=== PATIENT | female | born 1980 | race Caucasian/White ===

== ENCOUNTER 2018-05-25 09:59 | Emergency (ER) | payer SELFPAY ==
[~2018-05-25] VITALS: Ht 154.9 cm; Wt 99.8 kg
[2018-05-25] MEDS ORDERED: RT-ALBUTEROL/IPRATROPIUM 3 ML (DUONEB) VIAL INH ONE (10:30)
--- NOTE | 2018-05-25 10:38 | ED Cough/URI ---
General Chief Complaint: Cough/Cold/Flu Symptoms Stated Complaint: COUGH/VOMITING/VOICE IS HOARSE Nursing Triage Note: Pt ambulated to rm 10 w/o difficulty. Pt reports cough, congestion, chest pain with cough that has persisited for a few days. Pt reports symptoms worsening yesterday. Pt reports vomiting three times yesterday. Pt reports hoarse voice. Source: patient Exam Limitations: no limitations History of Present Illness Date Seen by Provider: May 25, 2018 Time Seen by Provider: 10:34 Initial Comments To ER with productive cough, rhinorrhea/nasal congestion, wheezing and intermittent vomiting since yesterday. She also has hoarseness of her voice. Timing/Duration: constant, yesterday Severity/Quality: productive cough, sputum Associated Symptoms: cough, shortness of breath, wheezing Allergies and Home Medications Allergies Coded Allergies: No Known Drug Allergies (Unverified , 05/25/18) Patient Home Medication List Home Medication List Reviewed: Yes Review of Systems Review of Systems Constitutional: see HPI, chills, fever EENTM: see HPI Respiratory: see HPI, cough, wheezing Cardiovascular: no symptoms reported Gastrointestinal: No abdominal pain, No diarrhea; nausea, vomiting Genitourinary: no symptoms reported Musculoskeletal: no symptoms reported Skin: no symptoms reported Psychiatric/Neurological: No Symptoms Reported Hematologic/Lymphatic: No Symptoms Reported Immunological/Allergic: no symptoms reported Past Oerttwg-Glyyav-Cttymg Hx Patient Social History Alcohol Use: Occasionally Uses Recreational Drug Use: No Smoking Status: Current Everyday Smoker Type Used: Cigarettes Recent Foreign Travel: No Contact w/Someone Who Travel: No Recent Infectious Disease Expo: No Recent Hopitalizations: No Physical Abuse: No Sexual Abuse: No Seasonal Allergies Seasonal Allergies: Yes Past Medical History Surgeries: No Respiratory: No Cardiac: No Neurological: Yes Seizure Disorder Genitourinary: No Gastrointestinal: No Musculoskeletal: No Endocrine: Yes Diabetes, Non-Insulin dep HEENT: No Cancer: No Psychosocial: No Integumentary: No Blood Disorders: No Adverse Reaction/Blood Tranf: No Physical Exam Vital Signs - First Documented 05/25/18 10:07 Temp 100.1 Pulse 91 Resp 17 B/P (MAP) 169/119 (136) Pulse Ox 99 O2 Delivery Room Air Capillary Refill : Less Than 3 Seconds Height: 5'1.00" Weight: 220lbs. oz. 99.107239gw; BMI Method:Stated General Appearance: WD/WN, no apparent distress Eyes: Bilateral Eye Normal Inspection, Bilateral Eye PERRL, Bilateral Eye EOMI HEENT: PERRL/EOMI, normal ENT inspection Neck: non-tender, full range of motion Respiratory: no respiratory distress, no accessory muscle use, wheezing (left upper lobe anteriorly) Cardiovascular: regular rate, rhythm, no murmur Gastrointestinal: normal bowel sounds, non tender, soft Extremities: normal range of motion, non-tender Neurologic/Psychiatric: alert, normal mood/affect, oriented x 3 Skin: normal color, warm/dry Progress/Results/Core Measures Suspected Sepsis Recent Fever Within 48 Hours: Yes Infection Criteria Present: None New/Unexplained Altered Menta: No Sepsis Screen: No Definite Risk SIRS Temperature:100.1 Pulse: 91 Respiratory Rate: 17 Blood Pressure 169 /119 Mean: 136 Results/Orders My Orders Orders - ANTONELLA CASTANON APRN Chest Pa/Lat (2 View) (05/25/18 10:26) Albuterol/Ipra Inhalation Soln (Duoneb I (05/25/18 10:30) Svn Small Volume Nebulizer (05/25/18 10:29) Vital Signs/I&O 05/25/18 05/25/18 10:07 10:07 Temp 100.1 Pulse 91 Resp 17 B/P (MAP) 169/119 (136) Pulse Ox 99 O2 Delivery Room Air Room Air Capillary Refill : Less Than 3 Seconds Blood Pressure Mean: 136 Departure Impression Primary Impression: Viral syndrome Disposition: 01 HOME, SELF-CARE Condition: Stable Departure-Patient Inst. Decision time for Depature: 10:37 Referrals: NO,LOCAL PHYSICIAN (PCP/Family) Primary Care Physician Patient Instructions: VIRAL SYNDROME Add. Discharge Instructions: 1. This is a viral syndrome and will not improve with the use of antibiotics. This may last 7-10 days. Use etxh-ynz-zvrtndr NyQuil and DayQuil to help control symptoms. All discharge instructions reviewed with patient and/or family. Voiced understanding. Work/School Note: Work Release Form Date Seen in the Emergency Department: May 25, 2018 Return to Work: May 28, 2018 ANTONELLA CASTANON APRN May 25, 2018 10:38
--- NOTE | 2018-05-25 10:53 | Diagnostic Imaging Report ---
INDICATION: Cough and congestion and chest pain. Time of exam 11:09 AM No prior studies are available for comparison. The heart size is normal. The pulmonary vascularity is unremarkable. The lungs are clear. No infiltrate, effusion or pneumothorax is detected. Impression: No acute cardiopulmonary process is detected. Dictated by: Dictated on workstation # [id number]
[2018-05-25] MEDS ORDERED: CODE118S4 PO (10:54)
[2018-05-25] MEDS ORDERED: ONDA8TAB6 PO (10:54)
[2018-05-25] MEDS ORDERED: ONDANSETRON 4 MG (ZOFRAN) ORAL DISSOLVE TAB PO ONE (11:00)
[2018-05-25 11:03] VITALS: BP 186/113
== END 2018-05-25 11:03 | disposition home or self-care (01) ==
LOC: ER 10:01
DX: B34.9 Viral infection, unspecified (principal); G40.909 Epilepsy, unspecified, not intractable, without status epilepticus; E11.9 Type 2 diabetes mellitus without complications; F17.210 Nicotine dependence, cigarettes, uncomplicated
CPT/HCPCS: 71046; 94640

== ENCOUNTER 2018-09-01 11:03 | Emergency (ER) | payer SELFPAY ==
[~2018-09-01] VITALS: Ht 152.4 cm; Wt 90.7 kg
[~2018-09-01 11:03] MED LIST: CODE118S4 PO; ONDA8TAB6 PO
[2018-09-01] MEDS ORDERED: RT-ALBUTEROL/IPRATROPIUM 3 ML (DUONEB) VIAL INH ONE ×2 (12:30→13:15)
--- NOTE | 2018-09-01 12:39 | ED Respiratory ---
General Chief Complaint: Cough/Cold/Flu Symptoms Stated Complaint: SOA/CONGESTION VOMITING Nursing Triage Note: AMB TO ROOM REPORTS FOR LAST 3 DAYS HAS HAD COUGH CONGESTION AND FEELING SOA CON'T TO SMOKE. Source: patient Exam Limitations: no limitations History of Present Illness Date Seen by Provider: Sep 01, 2018 Time Seen by Provider: 12:20 Initial Comments 38-year-old female patient presents to the emergency department with complaints of a 3 day onset of cough, congestion, wheezing, shortness of air. Patient states she has coughed until she vomited a couple of times. Patient does have a history of bronchitis. She does report slight nasal congestion, sore throat, and chills. Timing/Duration: other (3 day onset) Prior Episodes/Possible Cause: occasional episodes Modifying Factors: Worse With Coughing Allergies and Home Medications Allergies Coded Allergies: No Known Drug Allergies (Unverified , 05/25/18) Home Medications Minocycline HCl 100 Mg Capsule, 100 MG PO BID Prescribed by: KERI HENDRICKS on 09/01/18 1343 Prednisone 20 Mg Tab, 40 MG PO DAILY Prescribed by: KERI HENDRICKS on 09/01/18 1343 Patient Home Medication List Home Medication List Reviewed: Yes Review of Systems Review of Systems Constitutional: chills; No diaphoresis, No dizziness, No fever; malaise EENTM: nose congestion, throat pain; No ear discharge, No ear pain, No hoarseness, No mouth pain, No mouth swelling, No throat swelling Respiratory: see HPI, cough; No hemoptysis, No orthopnea; phlegm, short of breath; No stridor; wheezing, other (lower anterior rib pain) Cardiovascular: No chest pain, No edema, No palpitations, No syncope Gastrointestinal: No abdominal pain, No diarrhea, No melena, No nausea; vomiting (coughing until she vomits x2 ) Genitourinary: no symptoms reported Musculoskeletal: see HPI; No back pain, No neck pain Skin: no symptoms reported Psychiatric/Neurological: No Symptoms Reported Immunological/Allergic: no symptoms reported All Other Systems Reviewed Negative Unless Noted: Yes (Negative excepted noted.) Past Tfphhax-Gzhykh-Udwrjy Hx Past Med/Social Hx: Reviewed Nursing Past Med/Soc Hx Patient Social History Alcohol Use: Occasionally Uses Recreational Drug Use: No Smoking Status: Current Everyday Smoker Type Used: Cigarettes Recent Foreign Travel: No Contact w/Someone Who Travel: No Recent Infectious Disease Expo: No Recent Hopitalizations: No Seasonal Allergies Seasonal Allergies: Yes Past Medical History Surgeries: No Respiratory: No Cardiac: No Neurological: Yes Seizure Disorder Genitourinary: No Gastrointestinal: No Musculoskeletal: No Endocrine: Yes Diabetes, Non-Insulin dep HEENT: No Cancer: No Psychosocial: No Integumentary: No Blood Disorders: No Adverse Reaction/Blood Tranf: No Family Medical History Reviewed Nursing Family Hx No Pertinent Family Hx Physical Exam Vital Signs - First Documented 09/01/18 11:03 Temp 96.4 Pulse 105 Resp 18 B/P (MAP) 201/109 (139) Pulse Ox 99 O2 Delivery Room Air Capillary Refill : Less Than 3 Seconds Height: 5'1.00" Weight: 200lbs. oz. 90.572606vf; BMI Method:Stated General Appearance: WD/WN, no apparent distress HEENT: PERRL/EOMI, TMs normal, pharyngeal erythema; No tonsillar exudate; other (slight nasal congestion without sinus tenderness. ) Neck: non-tender, full range of motion, supple, normal inspection Respiratory: no respiratory distress, no accessory muscle use, decreased breath sounds; No crackles, No rales, No rhonchi, No stridor; wheezing (faint expiratory wheeze right base.), other (bilateral anterior lower ribs TTP.) Cardiovascular: normal peripheral pulses, regular rate, rhythm, no edema, no gallop, no JVD, no murmur Gastrointestinal: normal bowel sounds, non tender, soft, no organomegaly; No distended Extremities: no pedal edema, no calf tenderness, normal capillary refill Neurologic/Psychiatric: alert, normal mood/affect, oriented x 3 Skin: normal color, warm/dry Progress/Results/Core Measures Suspected Sepsis Recent Fever Within 48 Hours: No Infection Criteria Present: None New/Unexplained Altered Menta: No Sepsis Screen: No Definite Risk SIRS Temperature:96.4 Pulse: 105 Respiratory Rate: 18 Blood Pressure 201 /109 Mean: 139 Results/Orders My Orders Orders - KERI HENDRICKS PA Chest Pa/Lat (2 View) (09/01/18 12:24) Albuterol/Ipra Inhalation Soln (Duoneb I (09/01/18 12:30) Svn Small Volume Nebulizer (09/01/18 12:24) Albuterol/Ipra Inhalation Soln (Duoneb I (09/01/18 13:15) Svn Small Volume Nebulizer (09/01/18 13:09) Methylprednisolone Sod Succ (Solu-Medrol (09/01/18 13:15) Acetaminophen Tablet (Tylenol Tablet) (09/01/18 13:12) Rx-Albuterol Inhaler (Rx-Proair) (09/01/18 13:44) Prednisone Tablet (Deltasone Tablet) (09/01/18 13:45) Medications Given in ED Current Medications Medications Dose Ordered Sig/Aditya Route Start Time Stop Time Status Last Admin Dose Admin Albuterol/ Ipratropium 3 ml ONCE ONCE INH 09/01/18 13:15 09/01/18 13:16 DC 09/01/18 13:19 3 ML Methylprednisolone Sodium Succinate 125 mg ONCE ONCE IM 09/01/18 13:15 09/01/18 13:16 DC 09/01/18 13:19 125 MG Prednisone 40 mg ONCE ONCE PO 09/01/18 13:45 09/01/18 13:46 DC 09/01/18 13:50 40 MG Vital Signs/I&O 09/01/18 09/01/18 09/01/18 11:03 12:45 13:50 Temp 96.4 Pulse 105 93 Resp 18 18 B/P (MAP) 201/109 (139) 166/96 (119) Pulse Ox 99 98 95 O2 Delivery Room Air Room Air Room Air Capillary Refill : Less Than 3 Seconds Blood Pressure Mean: 139 Diagnostic Imaging Diagonstic Imaging: Xray Plain Films/CT/US/NM/MRI: chest Comments CHEST PA/LAT (2 VIEW) INDICATION: Shortness of air, congestion, cough and vomiting the past 3 days.. TECHNIQUE: Two view chest 2:36 PM CORRELATION STUDY: 05/25/2018 FINDINGS: The heart size, mediastinal configuration and pulmonary vasculature are within normal limits. The lungs are clear with no consolidating infiltrate. There is no significant pleural effusion or pneumothorax. There are compressed lower thoracic and upper lumbar vertebral bodies, likely stable. IMPRESSION: 1. Stable examination demonstrates no acute abnormality of the chest. Dictated by: Dictated on workstation # [id number] Reviewed: Reviewed by Me (radiology report reviewed by me) Departure Communication (Admissions) 9535 diagnostic findings discussed with the patient. Patient reports feeling better with the DuoNeb treatment. Patient shows improved aeration bilaterally. Increased wheezing and rhonchi bilaterally in all lung jiménez. We'll give a second DuoNeb treatment as well as plan Medrol 125 mg IM 1 dose. 1340 following the second DuoNeb treatment, patient's lungs are clear to auscultation bilaterally. Patient reports overall improvement in symptoms. Denies current shortness of air. Diagnostic findings discussed with the patient. Plan for discharge to home. Patient to follow-up with the primary care provider for recheck as an outpatient. Patient to return immediately to the emergency department for worsened symptoms or any other concerns. Impression Primary Impression: Acute bronchitis Qualified Codes: J20.9 - Acute bronchitis, unspecified Disposition: HOME, SELF-CARE Condition: Improved Departure-Patient Inst. Decision time for Depature: 13:42 Referrals: NO,LOCAL PHYSICIAN (PCP/Family) Primary Care Physician Patient Instructions: Acute Bronchitis, Adult (DC) Add. Discharge Instructions: All discharge instructions reviewed with patient and/or family. Voiced understanding. Medications as instructed. Tylenol extra strength over-the- counter as directed for pain as needed. Ibuprofen 600 mg by mouth every 6-8 hours as needed for pain. Rest. Drink plenty of fluids. Pmby-gyt-ptkwvqk decongestants, and histamines, and cough suppressants as needed for symptomatic relief. Follow-up with your primary care provider of choice for recheck and to establish care. Call for appointment time. Return in the emergency department for worsened symptoms or any other concerns. Scripts Minocycline HCl (Minocycline HCl) 100 Mg Capsule 100 MG PO BID, #14 CAP 0 Refills Prov: KERI HENDRICKS 09/01/18 Prednisone (Prednisone) 20 Mg Tab 40 MG PO DAILY, #8 TAB 0 Refills Prov: KERI HENDRICKS 09/01/18 Work/School Note: Work Release Form Date Seen in the Emergency Department: Sep 01, 2018 Return to Work: Sep 03, 2018 Restrictions: No Restrictions KERI HENDRICKS Sep 01, 2018 12:39
--- NOTE | 2018-09-01 13:02 | Diagnostic Imaging Report ---
INDICATION: Shortness of air, congestion, cough and vomiting the past 3 days.. TECHNIQUE: Two view chest 2:36 PM CORRELATION STUDY: 05/25/2018 FINDINGS: The heart size, mediastinal configuration and pulmonary vasculature are within normal limits. The lungs are clear with no consolidating infiltrate. There is no significant pleural effusion or pneumothorax. There are compressed lower thoracic and upper lumbar vertebral bodies, likely stable. IMPRESSION: 1. Stable examination demonstrates no acute abnormality of the chest. Dictated by: Dictated on workstation # [id number]
[2018-09-01] MEDS: RX-ALBUTEROL INHALER (PROAIR) 8 GM IH STA ×2 (13:06→13:50)
[2018-09-01] MEDS: predniSONE 20 MG TAB PO ONE ×2 (13:06→13:50)
[2018-09-01] MEDS ORDERED: ACETAMINOPHEN 500 MG TAB (TYLENOL) PO STA (13:12)
[2018-09-01] MEDS ORDERED: methylPREDNISolone 125 MG (Solu-MEDROL) VIAL IM ONE (13:15)
[2018-09-01] MEDS ORDERED: MINO100C2 PO (13:43)
[2018-09-01] MEDS ORDERED: PRD20T PO (13:43)
[2018-09-01 13:50] VITALS: BP 166/96
== END 2018-09-01 13:54 | disposition home or self-care (01) ==
LOC: EDUNIT# 11:03 → ER 11:05
DX: J20.9 Acute bronchitis, unspecified (principal); G40.909 Epilepsy, unspecified, not intractable, without status epilepticus; E11.9 Type 2 diabetes mellitus without complications; F17.210 Nicotine dependence, cigarettes, uncomplicated; Z79.52 Long term (current) use of systemic steroids; Z87.09 Personal history of other diseases of the respiratory system
CPT/HCPCS: 71046; 94640; 96372

== ENCOUNTER 2019-01-17 22:18 | Emergency (ER) | payer SELFPAY ==
[~2019-01-17] VITALS: Ht 154.9 cm; Wt 99.8 kg
[~2019-01-17 22:18] MED LIST changes: +MINO100C2 PO; +PRD20T PO
[2019-01-17 22:40] LABS: BILIRUBIN,URINE NEGATIVE (NEGATIVE); CLARITY,URINE VERY CLOUDY; COLOR,URINE YELLOW; GLUCOSE, URINE (UA) NEGATIVE (NEGATIVE); KETONES,URINE NEGATIVE (NEGATIVE); LEUKOCYTE ESTERASE ,URINE 1+ (NEGATIVE); NITRITE,URINE NEGATIVE (NEGATIVE); PH,URINE 6.5 (5-9); PROTEIN,URINE 2+ (NEGATIVE); UROBILINOGEN,URINE 8 MG/DL (NORMAL)
[2019-01-17 22:52] LABS: BACTERIA,URINE TRACE /HPF; RBC,URINE >100 /HPF; SQUAMOUS EPITHELIAL CELL,UR 0-2 /HPF; WBC,URINE RARE /HPF
[2019-01-17 23:02] LABS: AMPHETAMINE SCREEN, URINE NEGATIVE (NEGATIVE); BARBITURATE SCREEN URINE NEGATIVE (NEGATIVE); BENZODIAZEPINES SCREEN URINE NEGATIVE (NEGATIVE); CANNABINOID SCREEN, URINE NEGATIVE (NEGATIVE); COCAINE SCREEN URINE NEGATIVE (NEGATIVE); METHADONE STAT NEGATIVE (NEGATIVE); METHAMPHETAMINE SCREEN URINE S NEGATIVE (NEGATIVE); OPIATE SCREEN URINE NEGATIVE (NEGATIVE); OXYCODONE STAT NEGATIVE (NEGATIVE); PROPOXYPHENE STAT NEGATIVE (NEGATIVE); TRICYCLIC ANTIDEPRESSANTS SCRE NEGATIVE (NEGATIVE)
--- NOTE | 2019-01-17 23:07 | ED General ---
General Chief Complaint: Dizziness/Syncope Stated Complaint: LIGHT HEADED, THROWING UP Nursing Triage Note: Patient advises she began feeling dizzy at 0830 this morning while at work. She advises that she vomitted once this morning and states she vomitted prior to arrival to the ER. She denies abdominal pain at this time. Nursing Sepsis Screen: No Definite Risk Source of Information: Patient History of Present Illness Date Seen by Provider: Jan 17, 2019 Time Seen by Provider: 22:40 Initial Comments PT ARRIVES VIA POV STATES SHE WAS AT WORK TONIGHT AT [employer], HAD BEEN ON BREAK AND WAS GOING BACK TO WORK AND STARTED GETTING LIGHT HEADED AND DIZZY. STATES SHE TURNED AROUND "BUT SLOW" WHEN SHE GOT DIZZY SYMPTOMS BEGAN AROUND 2030 TONIGHT. STATES SHE HAD BEEN AT WORK FOR 3-4 HOURS, WHEN SYMPTOMS BEGAN, AND THEN GOT SENT HOME FROM WORK BECAUSE OF THIS PROBLEM. NOTHING WORSENS OR IMPROVES SYMPTOMS NO HEADACHE NO VISION CHANGES NO PARESTHESIAS OR MOTOR DEFICITS NO CHEST PAIN, NO SHORTNESS OF BREATH, NO PALPITATIONS STATES SHE VOMITED ONCE THIS AM, AND THEN VOMITED BEFORE SHE CAME TO ER TONIGHT. NO NAUSEA NOW. NO DIARRHEA OR ABDOMINAL PAIN NO PAIN ANYWHERE NO SYNCOPE. 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 STATES SHE MOVED HERE FROM [place], [place]--STATES SHE USED TO SEE DR. FRANCISCO THERE. STATES SHE HAS NOT SEEN A IN MANY YEARS, EVEN PRIOR TO MOVING HERE. Allergies and Home Medications Allergies Coded Allergies: No Known Drug Allergies (Unverified , 05/25/18) Home Medications Minocycline HCl 100 Mg Capsule, 100 MG PO BID Prescribed by: KERI HENDRICKS on 09/01/18 1343 Prednisone 20 Mg Tab, 40 MG PO DAILY Prescribed by: KERI HENDRICKS on 09/01/18 1343 Review of Systems Review of Systems Constitutional: No chills, No diaphoresis; dizziness; No fever, No malaise, No weakness EENTM: no symptoms reported Respiratory: no symptoms reported Cardiovascular: no symptoms reported Gastrointestinal: see HPI Genitourinary: no symptoms reported : No (NO CONTROL. ) LMP: Jan 16, 2019 Musculoskeletal: no symptoms reported Skin: no symptoms reported Psychiatric/Neurological: See HPI (DIZZINESS); Denies Headache, Denies Numbness, Denies Paresthesia, Denies Seizure, Denies Tingling, Denies Tremors, Denies Weakness Hematologic/Lymphatic: No Symptoms Reported Immunological/Allergic: no symptoms reported Past Umcroda-Dqeibv-Kqserw Hx Patient Social History Alcohol Use: Denies Use Recreational Drug Use: No Smoking Status: Current Everyday Smoker (1 PPD) Type Used: Cigarettes (1 PPD) Recent Foreign Travel: No Contact w/Someone Who Travel: No Recent Infectious Disease Expo: No Recent Hopitalizations: No Seasonal Allergies Seasonal Allergies: Yes Past Medical History Surgeries: No Respiratory: No Cardiac: No Neurological: Yes Seizure Disorder Female Reproductive Disorders: Denies Genitourinary: No Gastrointestinal: No Musculoskeletal: No Endocrine: Yes Diabetes, Non-Insulin dep HEENT: No Cancer: No Psychosocial: No Integumentary: No Blood Disorders: No Adverse Reaction/Blood Tranf: No Family Medical History No Pertinent Family Hx Physical Exam Vital Signs Vital Signs - First Documented 01/17/19 22:40 Temp 99.6 Pulse 93 Resp 14 B/P (MAP) 185/106 (132) Pulse Ox 96 O2 Delivery Room Air Capillary Refill : Less Than 3 Seconds Height, Weight, BMI Height: 5'1.00" Weight: 220lbs. oz. 99.853378md; BMI Method:Stated General Appearance: No Apparent Distress, Obese, Other (DIRTY, MALODOROUS) HEENT: PERRL/EOMI, TMs Normal, Pharynx Normal, Other (POOR DENTITION) Neck: Full Range of Motion, Normal Inspection, Non Tender, Supple; No Carotid Bruit, No JVD Respiratory: Normal Breath Sounds, No Accessory Muscle Use, No Respiratory Distress Cardiovascular: Regular Rate, Rhythm, No Edema, No JVD, No Murmur, Normal Peripheral Pulses Gastrointestinal: Normal Bowel Sounds, No Organomegaly, No Pulsatile Mass, Non Tender, Soft Extremity: Normal Capillary Refill, Normal Inspection, Normal Range of Motion, Non Tender, No Calf Tenderness, No Pedal Edema Neurologic/Psychiatric: Alert, Oriented x3, No Motor/Sensory Deficits, Normal Mood/Affect, bowling ball patcher II-XII Norm as Tested; No Abnormal Cerebellar Tests Skin: Normal Color, Warm/Dry Progress/Results/Core Measures Suspected Sepsis Recent Fever Within 48 Hours: No Infection Criteria Present: None New/Unexplained Altered Menta: No Sepsis Screen: No Definite Risk SIRS Temperature:99.6 Pulse: 93 Respiratory Rate: 14 Laboratory Tests 01/17/19 23:24: White Blood Count 8.7 Blood Pressure 185 /106 Mean: 132 Laboratory Tests 01/17/19 23:24: Creatinine 0.83, Platelet Count 303, Total Bilirubin 0.9 Results/Orders Lab Results Laboratory Tests Test 01/17/19 22:30 01/17/19 23:24 Range/Units Urine Color YELLOW Urine Clarity VERY CLOUDY H Urine pH 6.5 5-9 Urine Specific Nerinx 1.015 L 1.016-1.022 Urine Protein 2+ H NEGATIVE Urine Glucose (UA) NEGATIVE NEGATIVE Urine Ketones NEGATIVE NEGATIVE Urine Nitrite NEGATIVE NEGATIVE Urine Bilirubin NEGATIVE NEGATIVE Urine Urobilinogen 8 H NORMAL MG/DL Urine Leukocyte Esterase 1+ H NEGATIVE Urine RBC (Auto) 5+ H NEGATIVE Urine RBC >100 H /HPF Urine WBC RARE /HPF Urine Squamous Epithelial Cells 0-2 /HPF Urine Crystals NONE /LPF Urine Bacteria TRACE /HPF Urine Casts NONE /LPF Urine Mucus NEGATIVE /LPF Urine Culture Indicated NO Urine Test NEGATIVE NEGATIVE Urine Opiates Screen NEGATIVE NEGATIVE Urine Oxycodone Screen NEGATIVE NEGATIVE Urine Methadone Screen NEGATIVE NEGATIVE Urine Propoxyphene Screen NEGATIVE NEGATIVE Urine Barbiturates Screen NEGATIVE NEGATIVE Ur Tricyclic Antidepressants Screen NEGATIVE NEGATIVE Urine Phencyclidine Screen NEGATIVE NEGATIVE Urine Amphetamines Screen NEGATIVE NEGATIVE Urine Methamphetamines Screen NEGATIVE NEGATIVE Urine Benzodiazepines Screen NEGATIVE NEGATIVE Urine Cocaine Screen NEGATIVE NEGATIVE Urine Cannabinoids Screen NEGATIVE NEGATIVE White Blood Count 8.7 4.3-11.0 10^3/uL Red Blood Count 4.43 4.35-5.85 10^6/uL Hemoglobin 12.1 11.5-16.0 G/DL Hematocrit 34 L 35-52 % Mean Corpuscular Volume 78 L 80-99 FL Mean Corpuscular Hemoglobin 27 25-34 PG Mean Corpuscular Hemoglobin Concent 35 32-36 G/DL Red Cell Distribution Width 17.1 H 10.0-14.5 % Platelet Count 303 130-400 10^3/uL Mean Platelet Volume 10.1 7.4-10.4 FL Neutrophils (%) (Auto) 67 42-75 % Lymphocytes (%) (Auto) 25 12-44 % Monocytes (%) (Auto) 6 0-12 % Eosinophils (%) (Auto) 3 0-10 % Basophils (%) (Auto) 0 0-10 % Neutrophils # (Auto) 5.8 1.8-7.8 X 10^3 Lymphocytes # (Auto) 2.2 1.0-4.0 X 10^3 Monocytes # (Auto) 0.5 0.0-1.0 X 10^3 Eosinophils # (Auto) 0.2 0.0-0.3 10^3/uL Basophils # (Auto) 0.0 0.0-0.1 10^3/uL Sodium Level 139 135-145 MMOL/L Potassium Level 3.5 L 3.6-5.0 MMOL/L Chloride Level 103 98-107 MMOL/L Carbon Dioxide Level 22 21-32 MMOL/L Anion Gap 14 5-14 MMOL/L Blood Urea Nitrogen 12 7-18 MG/DL Creatinine 0.83 0.60-1.30 MG/DL Estimat Glomerular Filtration Rate > 60 BUN/Creatinine Ratio 14 Glucose Level 132 H 70-105 MG/DL Glucometer 140 H 70-110 MG/DL Calcium Level 8.7 8.5-10.1 MG/DL Corrected Calcium 8.9 8.5-10.1 MG/DL Magnesium Level 1.6 1.6-2.4 MG/DL Total Bilirubin 0.9 0.1-1.0 MG/DL Aspartate Amino Transf (AST/SGOT) 44 H 5-34 U/L Alanine Aminotransferase (ALT/SGPT) 34 0-55 U/L Alkaline Phosphatase 90 40-136 U/L Total Protein 7.4 6.4-8.2 GM/DL Albumin 3.8 3.2-4.5 GM/DL Amylase Level 32 25-125 U/L Lipase 23 8-78 U/L My Orders Orders - WESTON PEREZ DO Hcg,Qualitative Urine (01/17/19 22:36) Ua Culture If Indicated (01/17/19 22:36) Drug Screen Stat (Urine) (01/17/19 22:47) Accucheck Stat ONCE (01/17/19 23:08) Ed Iv/Invasive Line Start (01/17/19 23:08) Ekg Tracing (01/17/19 23:08) Monitor-Rhythm Ecg Trace Only (01/17/19 23:08) Ed Iv/Invasive Line Start (01/17/19 23:08) Ns Iv 1000 Ml (Sodium Chloride 0.9%) (01/17/19 23:08) Amylase (01/17/19 23:08) Cbc With Automated Diff (01/17/19 23:08) Comprehensive Metabolic Panel (01/17/19 23:08) Lipase (01/17/19 23:08) Magnesium (01/17/19 23:08) Ketorolac Injection (Toradol Injection) (01/17/19 23:30) Insulin (Regular) Human (Humulin R (Per (01/17/19 23:30) Piperacillin/Tazobactam (Bulk) (Zosyn In (01/17/19 23:30) Hydralazine Injection (Apresoline Inject (01/18/19 01:15) Medications Given in ED Current Medications Medications Dose Ordered Sig/Aditya Route Start Time Stop Time Status Last Admin Dose Admin Hydralazine HCl 10 mg ONCE ONCE IV 01/18/19 01:15 01/18/19 01:16 DC 01/18/19 01:13 10 MG Sodium Chloride 1,000 ml @ 0 mls/hr Q0M ONCE IV 01/17/19 23:08 01/17/19 23:10 DC 01/17/19 23:26 0 MLS/HR Vital Signs/I&O 01/17/19 22:40 Temp 99.6 Pulse 93 Resp 14 B/P (MAP) 185/106 (132) Pulse Ox 96 O2 Delivery Room Air Capillary Refill : Less Than 3 Seconds Blood Pressure Mean: 132 ECG Initial ECG Impression Date: Jan 17, 2019 Initial ECG Impression Time: 23:23 Initial ECG Rate: 86 Initial ECG Rhythm: Normal Sinus Initial ECG Impression: Nonspecific Changes (MILD ST DEPRESSION LATERALLY) Initial ECG Comparisson: No Previous ECG Available Departure Impression Primary Impression: Dizziness Additional Impressions: HTN (hypertension) Non-compliance HX OF NIDDM History of seizures Disposition: 01 HOME, SELF-CARE Condition: Improved Departure-Patient Inst. Referrals: NO,LOCAL PHYSICIAN (PCP/Family) Primary Care Physician Patient Instructions: DASH Diet, High Blood Pressure (DC), Dizziness, Nonvertig o, (DC) Add. Discharge Instructions: CALL TODAY TO MAKE AN APPOINTMENT TO ESTABLISH WITH LOCAL DR OF CHOICE OR YOU MAY SEE YOUR DR IN [place] All discharge instructions reviewed with patient and/or family. Voiced understanding. Scripts Hydralazine HCl (Hydralazine HCl) 10 Mg Tablet 10 MG PO TID, #15 TAB Prov: WESTON PEREZ DO 01/18/19 Work/School Note: Work Release Form Date Seen in the Emergency Department: Jan 17, 2019 Return to Work: Jan 18, 2019 Restrictions: No Restrictions WESTON PEREZ DO Jan 17, 2019 23:07
[2019-01-17] MEDS ORDERED: NS IV 1000 ML 1,000 ML IV ONE (23:08)
[2019-01-17 23:30] LABS: BASOPHILS % (AUTO) 0 % (0-10); EOSINOPHILS # (AUTO) 0.2 10^3/uL (0.0-0.3); EOSINOPHILS % (AUTO) 3 % (0-10); HEMATOCRIT 34 % (35-52); HEMOGLOBIN 12.1 G/DL (11.5-16.0); LYMPHOCYTES # (AUTO) 2.2 X 10^3 (1.0-4.0); LYMPHOCYTES % (AUTO) 25 % (12-44); MEAN CORPUSCULAR HEMOGLOBIN 27 PG (25-34); MEAN CORPUSCULAR HGB CONC 35 G/DL (32-36); MEAN CORPUSCULAR VOLUME 78 FL (80-99); MEAN PLATELET VOLUME 10.1 FL (7.4-10.4); MONOCYTES # (AUTO) 0.5 X 10^3 (0.0-1.0); MONOCYTES % (AUTO) 6 % (0-12); NEUTROPHILS # (AUTO) 5.8 X 10^3 (1.8-7.8); NEUTROPHILS % (AUTO) 67 % (42-75); PLATELET COUNT 303 10^3/uL (130-400); RED CELL DISTRIBUTION WIDTH 17.1 % (10.0-14.5); WHITE BLOOD COUNT 8.7 10^3/uL (4.3-11.0)
[2019-01-17] MEDS ORDERED: KETOROLAC 30 MG/ML VIAL IVP ONE (23:30)
[2019-01-17] MEDS ORDERED: PIPERACILLIN/TAZOBACTAM (BULK) 4.5 GM in NS (IVPB) 100 ML IV ONE (23:30)
[2019-01-17] MEDS ORDERED: inSUlin (REGULAR) HUMAN 1 UNIT/0.01 ML (CHARGE PER UNIT) IV ONE (23:30)
[2019-01-17 23:50] LABS: ALANINE AMINOTRANSFERASE 34 U/L (0-55); ALBUMIN 3.8 GM/DL (3.2-4.5); ALKALINE PHOSPHATASE 90 U/L (40-136); AMYLASE 32 U/L (25-125); BILIRUBIN,TOTAL 0.9 MG/DL (0.1-1.0); BUN/CREATININE RATIO 14; CALCIUM 8.7 MG/DL (8.5-10.1); CARBON DIOXIDE 22 MMOL/L (21-32); CHLORIDE 103 MMOL/L (98-107); CREATININE SERUM 0.83 MG/DL (0.60-1.30); GFR ESTIMATED > 60; GLUCOSE 132 MG/DL (70-105); LIPASE 23 U/L (8-78); MAGNESIUM 1.6 MG/DL (1.6-2.4); POTASSIUM 3.5 MMOL/L (3.6-5.0); SODIUM 139 MMOL/L (135-145); TOTAL PROTEIN 7.4 GM/DL (6.4-8.2)
[2019-01-18] MEDS ORDERED: hydrALAZINE (APESOLINE) 20 MG/ML VIAL IV ONE (01:15)
[2019-01-18] MEDS ORDERED: HYDR-3922 PO (01:39)
[2019-01-18 01:54] VITALS: BP 165/86
== END 2019-01-18 01:51 | disposition home or self-care (01) ==
LOC: EDUNIT# 22:18 → ER 22:20
DX: I10 Essential (primary) hypertension (principal); R42 Dizziness and giddiness; E11.9 Type 2 diabetes mellitus without complications; G40.909 Epilepsy, unspecified, not intractable, without status epilepticus; F17.210 Nicotine dependence, cigarettes, uncomplicated; Z91.19 Patient's noncompliance with other medical treatment and regimen; Z79.52 Long term (current) use of systemic steroids
CPT/HCPCS: 36415; 80053; 80306; 81000; 82150; 82962; 83690; 83735; 84703; 85025; 93005; 93041